=== PATIENT | male | born 1940 | race Caucasian/White ===

== ENCOUNTER 2018-04-28 12:08 | Emergency (ER) | payer MEDICARE | END 2018-04-28 13:04 | disposition home or self-care (01) | LOC: SCSER 12:08 | DX: L03.312 Cellulitis of back [any part except buttock and flank] (principal); I25.10 Atherosclerotic heart disease of native coronary artery without angina pectoris; I10 Essential (primary) hypertension; Z79.899 Other long term (current) drug therapy | CPT/HCPCS: 99283 ==

== ENCOUNTER 2020-09-19 10:25 | Outpatient (CLI) | payer MEDICARE ==
[2020-09-19] MEDS ORDERED: Iopamidol-370 76% 500 ML 1 ML ONE (11:04)
== END 2020-09-19 10:26 | disposition home or self-care (01) ==
LOC: BICCT 10:25
PROVIDERS: ATTEND Urology
DX: N13.2 Hydronephrosis with renal and ureteral calculous obstruction (principal); R31.0 Gross hematuria; K57.30 Diverticulosis of large intestine without perforation or abscess without bleeding; K40.20 Bilateral inguinal hernia, without obstruction or gangrene, not specified as recurrent
CPT/HCPCS: 74178; 82565; Q9967

== ENCOUNTER 2021-12-06 11:55 | Emergency (ER) | payer MEDICARE ==
[2021-12-06] MEDS ORDERED: Ketorolac Tromethamine 30 MG/ML VIAL ONE (12:32)
[2021-12-06] MEDS ORDERED: predniSONE 20 MG TAB ONE (12:32)
[2021-12-06] MEDS ORDERED: Cyclobenzaprine 10 MG TAB ONE (13:02)
[2021-12-06] MEDS ORDERED: Acetaminophen/Codeine 30-300mg Tablet ONE (13:10)
== END 2021-12-06 14:12 | disposition home or self-care (01) ==
LOC: ERS 11:55
DX: S39.012A Strain of muscle, fascia and tendon of lower back, initial encounter (principal); E78.5 Hyperlipidemia, unspecified; I10 Essential (primary) hypertension; Z79.899 Other long term (current) drug therapy; X58.XXXA Exposure to other specified factors, initial encounter
CPT/HCPCS: J1885; J7512

== ENCOUNTER 2022-03-05 11:10 | Inpatient (IN) | payer MEDICARE ==
[2022-03-05 12:25] LABS: #Eosinphils 0.2 thou/uL (0.0-0.7); #Lymphocytes 1.4 thou/uL (1.20-3.40); #Monocytes 0.6 thou/uL (0.11-0.59); #Neutrophils 5.1 thou/uL (1.40-6.50); %Basophils 0.3 % (0.0-1.0); %Eosinophils 2.9 % (0.0-10.0); %Lymphocytes 19.2 % (21.0-51.0); %Monocytes 7.8 % (0.0-10.0); %Neutrophils 69.8 % (42.0-75.0); Hemoglobin 13.2 g/dL (14.0-18.0); Mean Corpuscular HGB CONC 32.3 g/dL (32.0-36.0); Mean Corpuscular Hemoglobin 31.3 pg (27.0-31.0); Mean Platelet Volume 7.2 fL (7.4-10.4); Platelet Count 194 thou/uL (130-400); RBC Distribution Width 12.1 % (11.5-14.5); Red Blood Cell (RBC) Count 4.22 mill/uL (4.70-6.10); White Blood Cell (WBC) Count 7.3 thou/uL (4.8-10.8)
[2022-03-05 12:35] LABS: ALT (SGPT) 16 U/L (8-55); AST (SGOT) 18 U/L (5-34); Albumin 3.8 g/dL (3.4-4.8); Alkaline Phosphatase 66 U/L (40-110); Anion Gap 12 mmol/L (10-20); BUN (Urea Nitrogen) 14 mg/dL (8.4-25.7); Bilirubin, Total 0.7 mg/dL (0.2-1.2); Calc. Creatinine Clearance 0 mL/min (70-130); Calcium 9.3 mg/dL (7.8-10.44); Carbon Dioxide 24 mmol/L (23-31); Chloride 106 mmol/L (98-107); Estimated GFR 88; Globulin 2.8 g/dL (2.4-3.5); Glucose 118 mg/dL (83-110); Potassium 4.2 mmol/L (3.5-5.1); Protein, Total 6.6 g/dL (5.8-8.1); Sodium 138 mmol/L (136-145)
[2022-03-05] MEDS ORDERED: Aspirin Chewable 81 MG TAB ONE (13:22)
[2022-03-05 15:34] LABS: SARS-CoV-2 NAA Rapid Test Not Detected (NotDetected)
[2022-03-05] MEDS ORDERED: Acetaminophen/Codeine 30-300mg Tablet PO PRN (19:10)
[2022-03-05] MEDS ORDERED: Ondansetron PF 4 MG/2 ML Vial IVP PRN (19:14)
[2022-03-05 19:26] LABS: Bilirubin Negative (Negative); Blood, Urine Negative (Negative); Clarity Clear (Clear); Glucose, Urine (Dipstick) Normal (Negative); Ketone, Urine Negative (Negative); Leukocyte Negative Leu/uL (Negative); Nitrite Negative (Negative); Protein, Urine (Dipstick) Negative (Neg-Trace); Urobilinogen Normal mg/dL (Less than 2)
[2022-03-05] MEDS: Flecainide 50 MG TAB PO SCH (23:18)
[2022-03-05] MEDS: Dabigatran 150 mg Capsule PO SCH (23:19)
[2022-03-05] MEDS: Atorvastatin Calcium 40 MG TAB PO SCH (23:19)
[2022-03-05] MEDS: Lisinopril 10 MG TAB PO SCH (23:20)
[2022-03-05] MEDS: Sertraline 25 MG TAB PO SCH (23:20)
[2022-03-05] MEDS: DorzolamidE/Timolol 2%/0.5% Ophth Soln 10 ml Bottle EA EYE SCH (23:20)
[2022-03-06 02:40] VITALS: BMI 19.1
[2022-03-06 05:02] LABS: #Eosinphils 0.4 thou/uL (0.0-0.7); #Lymphocytes 1.4 thou/uL (1.20-3.40); #Monocytes 0.6 thou/uL (0.11-0.59); #Neutrophils 3.3 thou/uL (1.40-6.50); %Basophils 0.4 % (0.0-1.0); %Eosinophils 6.7 % (0.0-10.0); %Lymphocytes 24.4 % (21.0-51.0); %Monocytes 10.4 % (0.0-10.0); Mean Corpuscular HGB CONC 32.5 g/dL (32.0-36.0); Mean Corpuscular Hemoglobin 31.7 pg (27.0-31.0); Mean Corpuscular Volume 97.6 fl (78.0-98.0); Mean Platelet Volume 6.8 fL (7.4-10.4); Platelet Count 147 thou/uL (130-400); RBC Distribution Width 12.2 % (11.5-14.5); Red Blood Cell (RBC) Count 3.79 mill/uL (4.70-6.10); White Blood Cell (WBC) Count 5.7 thou/uL (4.8-10.8)
[2022-03-06 05:23] LABS: Hemoglobin A1c 6.1 % (4.0-6.0)
[2022-03-06 05:38] LABS: Anion Gap 7 mmol/L (10-20); BUN (Urea Nitrogen) 15 mg/dL (8.4-25.7); Calc. Creatinine Clearance 55 mL/min (70-130); Calcium 8.5 mg/dL (7.8-10.44); Carbon Dioxide 29 mmol/L (23-31); Cardiac Risk 3.2 (Less than 4.5); Chloride 108 mmol/L (98-107); Cholesterol 105 mg/dl (< 200 Desired); Estimated GFR 81; Glucose 107 mg/dL (83-110); HDL Cholesterol 33 mg/dL (>60 Neg Risk); LDL Cholesterol, Calculated 62 mg/dL; Potassium 4.1 mmol/L (3.5-5.1); Sodium 140 mmol/L (136-145); Triglycerides 52 mg/dL (Less than 150)
[2022-03-06] MEDS ORDERED: Cyanocobalamin 1000 MCG/ML VIAL IM SCH (08:45)
[2022-03-06] MEDS: Aspirin 325 MG TAB PO SCH (09:04)
[2022-03-06] MEDS: Dabigatran 150 mg Capsule PO SCH ×2 (09:05→22:12)
[2022-03-06] MEDS: Sertraline 25 MG TAB PO SCH ×2 (09:05→22:04)
[2022-03-06] MEDS: Flecainide 50 MG TAB PO SCH ×2 (09:06→22:04)
[2022-03-06] MEDS: DorzolamidE/Timolol 2%/0.5% Ophth Soln 10 ml Bottle EA EYE SCH ×2 (09:07→22:12)
[2022-03-06] MEDS: Lisinopril 10 MG TAB PO SCH ×2 (09:14→22:04)
[2022-03-06] MEDS: Atorvastatin Calcium 40 MG TAB PO SCH (22:04)
[2022-03-07 06:10] LABS: #Eosinphils 0.4 thou/uL (0.0-0.7); #Lymphocytes 1.5 thou/uL (1.20-3.40); #Monocytes 0.7 thou/uL (0.11-0.59); %Eosinophils 6.4 % (0.0-10.0); %Lymphocytes 22.7 % (21.0-51.0); %Monocytes 10.5 % (0.0-10.0); %Neutrophils 60.3 % (42.0-75.0); Hemoglobin 11.8 g/dL (14.0-18.0); Mean Corpuscular HGB CONC 31.8 g/dL (32.0-36.0); Mean Corpuscular Hemoglobin 31.1 pg (27.0-31.0); Mean Corpuscular Volume 97.9 fl (78.0-98.0); Mean Platelet Volume 7.3 fL (7.4-10.4); Platelet Count 158 thou/uL (130-400); White Blood Cell (WBC) Count 6.7 thou/uL (4.8-10.8)
[2022-03-07 06:32] LABS: ALT (SGPT) 14 U/L (8-55); AST (SGOT) 13 U/L (5-34); Albumin 3.3 g/dL (3.4-4.8); Alkaline Phosphatase 56 U/L (40-110); Anion Gap 9 mmol/L (10-20); BUN (Urea Nitrogen) 13 mg/dL (8.4-25.7); Bilirubin, Total 0.3 mg/dL (0.2-1.2); Calc. Creatinine Clearance 64 mL/min (70-130); Calcium 8.4 mg/dL (7.8-10.44); Carbon Dioxide 25 mmol/L (23-31); Chloride 109 mmol/L (98-107); Estimated GFR 89; Globulin 2.3 g/dL (2.4-3.5); Glucose 111 mg/dL (83-110); Potassium 3.9 mmol/L (3.5-5.1); Protein, Total 5.6 g/dL (5.8-8.1); Sodium 139 mmol/L (136-145)
[2022-03-07] MEDS: Flecainide 50 MG TAB PO SCH ×2 (08:31→21:49)
[2022-03-07] MEDS: Sertraline 25 MG TAB PO SCH ×2 (08:35→21:49)
[2022-03-07] MEDS: Aspirin 325 MG TAB PO SCH (08:37)
[2022-03-07] MEDS: Lisinopril 10 MG TAB PO SCH ×2 (08:37→21:49)
[2022-03-07] MEDS: Dabigatran 150 mg Capsule PO SCH ×2 (08:38→21:49)
[2022-03-07] MEDS: DorzolamidE/Timolol 2%/0.5% Ophth Soln 10 ml Bottle EA EYE SCH ×2 (08:39→21:48)
[2022-03-07 13:21] LABS: ANA Symphony (Qualitative) Negative (Negative); ANA Symphony (Quantitative) 0.4 Ratio (< 0.7 Negative); dsDNA IgG Antibody 1.8 IU/mL (<10 Negative)
[2022-03-07] MEDS ORDERED: AFRIN NASAL MIST 15 ML BOT NS SCH ×2 (16:30→21:00)
[2022-03-07] MEDS ORDERED: predniSONE 20 MG TAB PO SCH (16:30)
[2022-03-07] MEDS ORDERED: Fluticasone Propionate Nasal Spray 16 gm Bottle NASAL SCH (16:30)
[2022-03-07] MEDS ORDERED: Oxymetazoline HCl 0.05% (30 ML BOT) NS SCH (16:45)
[2022-03-07] MEDS: Amoxicillin/Potassium Clav 875 MG TAB PO SCH (18:25)
[2022-03-07] MEDS: predniSONE 20 MG TAB PO SCH (21:49)
[2022-03-07] MEDS: Atorvastatin Calcium 40 MG TAB PO SCH (21:49)
[2022-03-07] MEDS: Oxymetazoline HCl 0.05% (30 ML BOT) NS SCH (21:50)
[2022-03-07] MEDS: Fluticasone Propionate Nasal Spray 16 gm Bottle NASAL SCH (21:51)
[2022-03-08] MEDS: Dabigatran 150 mg Capsule PO SCH ×2 (09:55→20:28)
[2022-03-08] MEDS: Oxymetazoline HCl 0.05% (30 ML BOT) NS SCH ×2 (09:55→20:26)
[2022-03-08] MEDS: Flecainide 50 MG TAB PO SCH ×2 (09:56→20:27)
[2022-03-08] MEDS: predniSONE 20 MG TAB PO SCH ×2 (09:56→20:27)
[2022-03-08] MEDS: Sertraline 25 MG TAB PO SCH ×2 (09:57→20:27)
[2022-03-08] MEDS: Amoxicillin/Potassium Clav 875 MG TAB PO SCH ×2 (09:57→17:42)
[2022-03-08] MEDS: Lisinopril 10 MG TAB PO SCH ×2 (09:57→20:27)
[2022-03-08] MEDS: Aspirin 325 MG TAB PO SCH (09:57)
[2022-03-08] MEDS: Fluticasone Propionate Nasal Spray 16 gm Bottle NASAL SCH ×2 (09:57→20:27)
[2022-03-08] MEDS: DorzolamidE/Timolol 2%/0.5% Ophth Soln 10 ml Bottle EA EYE SCH ×2 (09:58→20:26)
[2022-03-08] MEDS: Atorvastatin Calcium 40 MG TAB PO SCH (20:28)
[2022-03-09] MEDS: Oxymetazoline HCl 0.05% (30 ML BOT) NS SCH ×2 (10:01→20:37)
[2022-03-09] MEDS: Fluticasone Propionate Nasal Spray 16 gm Bottle NASAL SCH ×2 (10:02→20:37)
[2022-03-09] MEDS: DorzolamidE/Timolol 2%/0.5% Ophth Soln 10 ml Bottle EA EYE SCH ×2 (10:03→20:37)
[2022-03-09] MEDS: Sertraline 25 MG TAB PO SCH ×2 (10:03→20:36)
[2022-03-09] MEDS: Aspirin 325 MG TAB PO SCH (10:03)
[2022-03-09] MEDS: Dabigatran 150 mg Capsule PO SCH ×2 (10:03→20:36)
[2022-03-09] MEDS: Flecainide 50 MG TAB PO SCH ×2 (10:04→20:35)
[2022-03-09] MEDS: Amoxicillin/Potassium Clav 875 MG TAB PO SCH ×2 (10:04→17:29)
[2022-03-09] MEDS: Lisinopril 10 MG TAB PO SCH ×2 (10:04→20:36)
[2022-03-09] MEDS: predniSONE 20 MG TAB PO SCH ×2 (10:04→20:36)
[2022-03-09] MEDS: Atorvastatin Calcium 40 MG TAB PO SCH (20:36)
[2022-03-10] MEDS: DorzolamidE/Timolol 2%/0.5% Ophth Soln 10 ml Bottle EA EYE SCH ×2 (08:35→21:47)
[2022-03-10] MEDS: Oxymetazoline HCl 0.05% (30 ML BOT) NS SCH ×2 (08:35→21:47)
[2022-03-10] MEDS: Fluticasone Propionate Nasal Spray 16 gm Bottle NASAL SCH ×2 (08:35→21:46)
[2022-03-10] MEDS: Dabigatran 150 mg Capsule PO SCH ×2 (08:36→21:47)
[2022-03-10] MEDS: Flecainide 50 MG TAB PO SCH ×2 (08:36→21:46)
[2022-03-10] MEDS: Aspirin 325 MG TAB PO SCH (08:36)
[2022-03-10] MEDS: Lisinopril 10 MG TAB PO SCH ×2 (08:37→21:46)
[2022-03-10] MEDS: predniSONE 20 MG TAB PO SCH ×2 (08:37→21:46)
[2022-03-10] MEDS: Amoxicillin/Potassium Clav 875 MG TAB PO SCH ×2 (08:37→17:05)
[2022-03-10] MEDS: Sertraline 25 MG TAB PO SCH ×2 (08:37→21:46)
[2022-03-10] MEDS: Atorvastatin Calcium 40 MG TAB PO SCH (21:48)
[2022-03-11] MEDS: Aspirin 325 MG TAB PO SCH (08:30)
[2022-03-11] MEDS: Sertraline 25 MG TAB PO SCH ×2 (08:30→20:31)
[2022-03-11] MEDS: Amoxicillin/Potassium Clav 875 MG TAB PO SCH ×2 (08:30→17:13)
[2022-03-11] MEDS: DorzolamidE/Timolol 2%/0.5% Ophth Soln 10 ml Bottle EA EYE SCH ×2 (08:30→20:31)
[2022-03-11] MEDS: predniSONE 20 MG TAB PO SCH ×2 (08:31→20:31)
[2022-03-11] MEDS: Flecainide 50 MG TAB PO SCH ×2 (08:31→20:29)
[2022-03-11] MEDS: Lisinopril 10 MG TAB PO SCH ×2 (08:31→20:30)
[2022-03-11] MEDS: Dabigatran 150 mg Capsule PO SCH ×2 (08:32→20:32)
[2022-03-11] MEDS: Oxymetazoline HCl 0.05% (30 ML BOT) NS SCH ×2 (08:32→20:32)
[2022-03-11] MEDS: Fluticasone Propionate Nasal Spray 16 gm Bottle NASAL SCH ×2 (08:37→20:31)
[2022-03-11] MEDS: Atorvastatin Calcium 40 MG TAB PO SCH (20:30)
[2022-03-12] MEDS: Oxymetazoline HCl 0.05% (30 ML BOT) NS SCH ×2 (08:58→20:36)
[2022-03-12] MEDS: Dabigatran 150 mg Capsule PO SCH ×2 (08:59→20:34)
[2022-03-12] MEDS: predniSONE 20 MG TAB PO SCH ×2 (08:59→20:35)
[2022-03-12] MEDS: Sertraline 25 MG TAB PO SCH ×2 (08:59→20:35)
[2022-03-12] MEDS: Flecainide 50 MG TAB PO SCH ×2 (09:00→20:35)
[2022-03-12] MEDS: Aspirin 325 MG TAB PO SCH (09:01)
[2022-03-12] MEDS: Amoxicillin/Potassium Clav 875 MG TAB PO SCH ×2 (09:01→18:02)
[2022-03-12] MEDS: Fluticasone Propionate Nasal Spray 16 gm Bottle NASAL SCH ×2 (09:01→20:37)
[2022-03-12] MEDS: DorzolamidE/Timolol 2%/0.5% Ophth Soln 10 ml Bottle EA EYE SCH ×2 (09:02→20:36)
[2022-03-12] MEDS: Lisinopril 10 MG TAB PO SCH ×2 (09:06→20:34)
[2022-03-12] MEDS: Atorvastatin Calcium 40 MG TAB PO SCH (20:35)
[2022-03-13] MEDS: Amoxicillin/Potassium Clav 875 MG TAB PO SCH ×2 (09:02→17:08)
[2022-03-13] MEDS: Dabigatran 150 mg Capsule PO SCH (09:02)
[2022-03-13] MEDS: Sertraline 25 MG TAB PO SCH (09:02)
[2022-03-13] MEDS: Flecainide 50 MG TAB PO SCH (09:03)
[2022-03-13] MEDS: Aspirin 325 MG TAB PO SCH (09:03)
[2022-03-13] MEDS: Lisinopril 10 MG TAB PO SCH (09:03)
[2022-03-13] MEDS: Oxymetazoline HCl 0.05% (30 ML BOT) NS SCH (09:04)
[2022-03-13] MEDS: predniSONE 20 MG TAB PO SCH (09:04)
[2022-03-13] MEDS: Fluticasone Propionate Nasal Spray 16 gm Bottle NASAL SCH (09:04)
[2022-03-13] MEDS: DorzolamidE/Timolol 2%/0.5% Ophth Soln 10 ml Bottle EA EYE SCH (09:05)
[2022-03-14 02:37] VITALS: BP 127/55; TEMP 97.9
== END 2022-03-13 17:10 | DRG 69 ==
LOC: ERS 11:10 → ERHOLD 13:27 → NEURO 20:49 → OBSVTOIN 21:16
PROVIDERS: ADMIT Specialist; ATTEND Specialist
DX: G45.9 Transient cerebral ischemic attack, unspecified (principal); G81.91 Hemiplegia, unspecified affecting right dominant side; H53.2 Diplopia; J44.9 Chronic obstructive pulmonary disease, unspecified; I25.10 Atherosclerotic heart disease of native coronary artery without angina pectoris; I48.0 Paroxysmal atrial fibrillation; I10 Essential (primary) hypertension; E78.5 Hyperlipidemia, unspecified; Z20.822 Contact with and (suspected) exposure to COVID-19; F32.A Depression, unspecified; F41.9 Anxiety disorder, unspecified; Z85.46 Personal history of malignant neoplasm of prostate; Z95.0 Presence of cardiac pacemaker; Z98.890 Other specified postprocedural states; Z87.891 Personal history of nicotine dependence
CPT/HCPCS: 36415; 70450; 71045; 80048; 80053; 80061; 81003; 82550; 82607; 83036; 84443; 85025; 85652; 86038; 86140; 86225; 87811; 93005; 93306; 93880; 96360; G0378; J3420; J7512; U0002

== ENCOUNTER 2022-12-10 09:43 | Outpatient (CLI) | payer MEDICARE ==
[2022-12-10 10:58] LABS: Bilirubin Neg (Negative); Blood, Urine 10 (Negative); Clarity Clear (Clear); Glucose, Urine (Dipstick) Normal (Negative); Ketone, Urine Negative (Negative); Leukocyte Negative (Negative); Nitrite Negative (Negative); Protein, Urine (Dipstick) 15 mg/dl (Neg-Trace); Specific Gravity, Urine 1.025 (1.005-1.030); Urobilinogen Normal mg/dL (Less than 2)
[2022-12-10 11:14] LABS: Bacteria/HPF Rare-Few HPF (None Seen); RBC/HPF 0-3 HPF (0-3); Squamous Epithelial 0-3 HPF (0-3); WBC/HPF 0-3 HPF (0-3)
[2022-12-10 11:14] LABS: Hematocrit 39.4 % (38.8-50.0); Hemoglobin 12.3 g/dL (13.5-17.5); Mean Corpuscular HGB CONC 31.2 g/dL (32.0-36.0); Mean Corpuscular Hemoglobin 28.1 pg (27.0-33.0); Mean Corpuscular Volume 90.2 fl (81.2-95.1); Platelet Count 199 10x3/uL (150-450); RBC Distribution Width 14.3 % (11.5-14.5); Red Blood Cell (RBC) Count 4.37 10x6/uL (4.32-5.72); White Blood Cell (WBC) Count 7.8 10x3/uL (3.5-10.5)
[2022-12-10 11:35] LABS: INR-International Normal Ratio 1.3; Prothrombin Time 14.4 sec (9.5-12.1)
[2022-12-10 11:40] LABS: Anion Gap 13 mmol/L (10-20); BUN (Urea Nitrogen) 16 mg/dL (8.4-25.7); Calc. Creatinine Clearance 0 mL/min (70-130); Calcium 9.1 mg/dL (7.8-10.44); Carbon Dioxide 25 mmol/L (23-31); Chloride 107 mmol/L (98-107); Estimated GFR 70; Glucose 110 mg/dL (83-110); Potassium 4.9 mmol/L (3.5-5.1); Sodium 140 mmol/L (136-145)
== END 2022-12-10 09:44 | disposition home or self-care (01) ==
LOC: LABBT 09:43
PROVIDERS: ATTEND Urology
DX: Z01.818 Encounter for other preprocedural examination (principal); N20.0 Calculus of kidney; C61 Malignant neoplasm of prostate; R31.0 Gross hematuria; R39.9 Unspecified symptoms and signs involving the genitourinary system
CPT/HCPCS: 80048; 81001; 85027; 85610; 85730; 87086; 93005; 93010

== ENCOUNTER 2022-12-21 08:40 | Day surgery (SDC) | payer MEDICARE ==
[2022-12-10 10:43] VITALS: BMI 20.9
[2022-12-21] MEDS ORDERED: fentaNYL 50 mcg/mL 1 mL Vial ONE (12:25)
[2022-12-21] MEDS ORDERED: Iopamidol 0 ML ONE (12:27)
[2022-12-21] MEDS ORDERED: Triamcinolone 40 MG/ML VIAL ONE (12:27)
[2022-12-21] MEDS ORDERED: LevoFLOXacin 500 mg/D5W 100 ML BAG ONE (12:31)
[2022-12-21] MEDS ORDERED: PROPOFOL 200 MG/20 ML VIAL ONE (12:51)
[2022-12-21] MEDS ORDERED: ePHEDrine Sulfate 50 MG/10 ML VIAL ONE (12:51)
[2022-12-21] MEDS ORDERED: Lidocaine 1% PF 5 ML VIAL ONE (12:51)
[2022-12-21] MEDS ORDERED: Ondansetron PF 4 MG/2 ML Vial ONE (12:51)
== END 2022-12-21 15:49 | disposition home or self-care (01) ==
LOC: SDC 08:40
PROVIDERS: ATTEND Urology
PROC: 0T7D0ZZ Dilation of Urethra, Open Approach (ICD-10-PCS; principal; 2022-12-21)
PROC: 0TC78ZZ Extirpation of Matter from Left Ureter, Via Natural or Artificial Opening Endoscopic (ICD-10-PCS; 2022-12-21)
PROC: 0T778DZ Dilation of Left Ureter with Intraluminal Device, Via Natural or Artificial Opening Endoscopic (ICD-10-PCS; 2022-12-21)
PROC: 0TBB8ZX Excision of Bladder, Via Natural or Artificial Opening Endoscopic, Diagnostic (ICD-10-PCS; 2022-12-21)
PROC: 0T7D8DZ Dilation of Urethra with Intraluminal Device, Via Natural or Artificial Opening Endoscopic (ICD-10-PCS; 2022-12-21)
DX: N20.0 Calculus of kidney (principal); N32.0 Bladder-neck obstruction; C61 Malignant neoplasm of prostate; R31.0 Gross hematuria; Z79.82 Long term (current) use of aspirin; Z79.899 Other long term (current) drug therapy; E78.00 Pure hypercholesterolemia, unspecified; I10 Essential (primary) hypertension; Z91.041 Radiographic dye allergy status; Z88.1 Allergy status to other antibiotic agents; Z88.8 Allergy status to other drugs, medicaments and biological substances
CPT/HCPCS: 52224; 52356; 82365; C1713; C1747; C1769; C2617; J3010; 88300; 88305; J1956; J2405; J2704; J3301; Q9967

== ENCOUNTER 2023-04-18 10:41 | Outpatient (CLI) | payer MEDICARE | END 2023-04-18 10:42 | disposition home or self-care (01) | LOC: ULT 10:41 | PROVIDERS: ATTEND Urology | DX: N20.0 Calculus of kidney (principal); N28.1 Cyst of kidney, acquired | CPT/HCPCS: 76770 ==